=== PATIENT | male | born 1985 | race African-American/Black ===

== ENCOUNTER 2018-06-29 13:52 | Emergency (ER) | payer OTHER ==
[~2018-06-29] VITALS: Ht 177.8 cm; Wt 74.8 kg
[~2018-06-29 13:52] MED LIST: FLEXERIL PO; IBUPROFEN 800800 MG PO; NOHOMEMEDICATIONS; TESSALON200 MG PO
[2018-06-29 14:12] VITALS: BP 109/71
[2018-06-29] MEDS ORDERED: NORCO 5-325 TA1 EACH PO (15:13)
[2018-06-29] MEDS ORDERED: CYCLOBENZAPRINE5 MG PO (15:13)
[2018-06-29] MEDS ORDERED: MOBIC7.5 MG PO (15:13)
== END 2018-06-29 15:30 | disposition home or self-care (01) ==
LOC: ER 13:52
DX: M79.604 Pain in right leg (principal); G89.29 Other chronic pain; M79.651 Pain in right thigh; Z87.828 Personal history of other (healed) physical injury and trauma